=== PATIENT | male | born 2000 | race African-American/Black ===

== ENCOUNTER 2019-09-06 13:34 | Outpatient (CLI) | payer OTHER ==
--- NOTE | 2019-09-06 15:01 | MRI ---
Exam: Left thumb MRI without IV contrast: HISTORY: Pain following injury with concern for UCL tear FINDINGS: There is abnormal high signal associated with the distal UCL evidence for a tear. No evidence for a s tener lesion. In addition there is also abnormal signal associated with the proximal portion of the radial collateral ligament and some adjacent soft tissue edematous posttraumatic change. There is a v taylor subtle focus of increased marrow signal at the proximal radial collateral ligament insertion on the first metacarpal probably related to partial evulsion. Minimal laxity of the volar joint capsule. There is some scattered intramuscular posttraumatic edema medially, laterally, on the volar aspect at the level of the distal first metacarpal. The visualized associated tendons appear intact. IMPRESSION: Tear of the distal UCL of the first metatarsal phalangeal joint. No evidence for an associated stener lesion. Tear of the proximal radial collateral ligament with a small associated marrow focus probably related to attempt at an avulsion of the radial side of the distal first metacarpal. Minimal surrounding intramuscular soft tissue posttraumatic edema.
== END 2019-09-06 13:35 | disposition home or self-care (01) ==
LOC: TBSIIMAG 13:34
PROVIDERS: ATTEND Orthopaedic Surgery
DX: S63.602A Unspecified sprain of left thumb, initial encounter (principal); S93.522A Sprain of metatarsophalangeal joint of left great toe, initial encounter; S53.22XA Traumatic rupture of left radial collateral ligament, initial encounter